=== PATIENT | female | born 2000 | race Two or more races ===

== ENCOUNTER 2024-09-26 16:28 | Emergency (ER) | payer OTHER ==
[~2024-09-26] VITALS: Ht 154.9 cm; Wt 59.0 kg
[2024-09-26] MEDS ORDERED: DEXAMETHASONE SODIUM PHOSPHATE 4 MG/ML VIAL IM ONE (19:15)
[2024-09-26] MEDS ORDERED: KETOROLAC TROMETHAMINE 60 MG VIAL IM ONE ×2 (19:15→19:28)
[2024-09-26] MEDS ORDERED: PREDNISONE10 M2 PO (19:28)
[2024-09-26] MEDS ORDERED: DEXAMETHASONE SODIUM PHOSPHATE 4 MG/ML VIAL ONE (19:28)
== END 2024-09-26 19:42 | disposition home or self-care (01) ==
LOC: ER 16:29
DX: G56.02 Carpal tunnel syndrome, left upper limb (principal)